=== PATIENT | female | born 2000 | race Two or more races ===

== ENCOUNTER 2019-12-19 21:42 | Inpatient (IN) | payer MEDICAID ==
[~2019-12-19 21:42] MED LIST: Lidocaine 1.5% with EPINEPHrine 1:200,000 5 ML Amp ONE
[2019-12-20] MEDS ORDERED: Sodium Chloride 0.9% 10 ML Syringe FLUSH PRN (00:48)
[2019-12-20] MEDS ORDERED: Ondansetron 4 MG/2 ML SDV IVPUSH PRN (00:48)
[2019-12-20] MEDS ORDERED: Nalbuphine 10 MG/ML Syringe IVPUSH PRN (00:48)
[2019-12-20] MEDS ORDERED: Oxytocin/Lactated Ringers 10 UNIT/1,000 ML BAG IV SCH (01:00)
[2019-12-20] MEDS: Lactated Ringers 1,000 ML IV SCH ×4 (01:05→05:21)
[2019-12-20] MEDS ORDERED: fentaNYL 100 MCG/2 ML SDV EPIDUR PRN (01:11)
[2019-12-20] MEDS ORDERED: diphenhydrAMINE 50 MG/ML SDV IVPUSH PRN (01:11)
[2019-12-20] MEDS ORDERED: Bupivacaine/fentaNYL/NS 100 ML Bag EPIDUR PRN (01:11)
[2019-12-20] MEDS ORDERED: ePHEDrine 50 MG/ML SDV IVPUSH PRN (01:11)
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
--- NOTE | 2019-12-20 07:53 | PCM.DEL ---
L & D Note - General Info Date of Service: 12/20/19 - Delivery Note Labor: Spontaneous Delivery Outcome: Livebirth Delivery Method: Spontaneous Vaginal Delivery-Single Delivery Mode: Spontaneous Presentation: Right Occiput Anterior (LYNDSAY) Nuchal Cord: None Anesthesia Type: Epidural Amniotic Fluid Description: Clear Episiotomy Type: None Laceration: None Placenta: Intact, Spontaneous Cord: 3 Vessels Estimated Blood Loss: 200 Resuscitation Needed: Yes [place]: Bulb Syringe, Stimulated, Warmed, [place] Used, Warmer Used Delivery Comments (Free Text/Narrative):: Assumed care for patient at 0645. Was about 9 cm at that time. Made quick change to complete dilation. Began pushing. With maternal pushing effort head delivered from LYNDSAY presentation. No nuchal cord. With gentle downward traction shoulders and body delivered. Infant placed on maternal abdomen. Cord clamped and cut. Cord blood obtained. Placenta allowed time to separate and expelled intact. Inspection of the perineum showed no lacerations - General Info Date of Service: 12/20/19 - Patient Data Vitals - Most Recent: Last Vital Signs Temp 37.2 C 12/19/19 22:01 Pulse 79 12/19/19 22:01 Resp 16 12/19/19 22:01 BP 121/77 12/19/19 22:01 Pulse Ox 94 L 12/19/19 22:01 Weight - Most Recent: 147.644 kg I&O - Last 24 Hours: Intake & Output 12/19/19 12/20/19 12/20/19 22:59 06:59 14:59 Intake Total 3000 Balance 3000 Lab Results Last 24 Hours: Laboratory Results - last 24 hr 12/19/19 12/19/19 12/20/19 Range/Units 22:25 22:25 01:10 WBC 12.23 H (3.98-10.04) K/mm3 RBC 4.40 (3.98-5.22) M/mm3 Hgb 11.5 (11.2-15.7) gm/dl Hct 36.4 (34.1-44.9) % MCV 82.7 (79.4-94.8) fl MCH 26.1 (25.6-32.2) pg MCHC 31.6 L (32.2-35.5) g/dl RDW Std Deviation 48.2 H (36.4-46.3) fL Plt Count 477 H (182-369) K/mm3 MPV 9.5 (9.4-12.3) fl Neut % (Auto) 69.3 (34.0-71.1) % Lymph % (Auto) 22.1 (19.3-51.7) % [place] % (Auto) 7.5 (4.7-12.5) % Eos % (Auto) 0.7 (0.7-5.8) Baso % (Auto) 0.1 (0.1-1.2) % Neut # (Auto) 8.47 H (1.56-6.13) K/mm3 Lymph # (Auto) 2.70 (1.18-3.74) K/mm3 [place] # (Auto) 0.92 H (0.24-0.36) K/mm3 Eos # (Auto) 0.09 (0.04-0.36) K/mm3 Baso # (Auto) 0.01 (0.01-0.08) K/mm3 Urine Color Yellow (Yellow) Urine Appearance Slt cloudy H (Clear) Urine pH 6.5 (5.0-8.0) Ur Specific [place] 1.025 (1.005-1.030) Urine Protein 1+ H (Negative) Urine Glucose (UA) Negative (Negative) Urine Ketones Negative (Negative) Urine Occult Blood Negative (Negative) Urine Nitrite Negative (Negative) Urine Bilirubin Negative (Negative) Urine Urobilinogen 0.2 (0.2-1.0) Ur Leukocyte Esterase Trace H (Negative) Urine RBC 0-5 (0-5) /hpf Urine WBC 0-5 (0-5) /hpf Ur Squamous Epith Cells 5-10 H (0-5) /hpf Amorphous Sediment Few H (NOT SEEN) /hpf Urine Bacteria Few (FEW) /hpf Urine Mucus Moderate H (FEW) /hpf Urine Opiates Screen Negative (SOWRCK=522) Ur Buprenorphine Scrn Negative (CUTOFF=10) Ur Oxycodone Screen Negative (OHE5VC=881) Urine Methadone Screen Negative (BPFADX=581) Ur Propoxyphene Screen Negative (RVOTNT=288) Ur Barbiturates Screen Negative (BSHFDW=123) Ur Tricyclics Screen Negative (JZKRNC=868) Ur Phencyclidine Scrn Negative (CUTOFF=25) Ur Amphetamine Screen Negative (QATTCL=806) U Methamphetamines Scrn Negative (XVUUFH=622) U Benzodiazepines Scrn Negative (BBFDBX=789) U Cocaine Metab Screen Negative (MVKFZN=996) U Marijuana (THC) Screen Negative (CUTOFF=50) Med Orders - Current: Current Medications Diphenhydramine HCl (Benadryl) 25 mg IVPUSH Q6H PRN PRN Reason: pruritis Ephedrine Sulfate (Ephedrine Sulfate) 5 mg IVPUSH ASDIRECTED PRN PRN Reason: Hypotension Fentanyl (Sublimaze) 100 mcg EPIDUR Q3H PRN PRN Reason: Pain Last Admin: 12/20/19 01:59 Dose: 100 mcg Fentanyl/Bupivacaine HCl (Fentanyl/Bupivacaine/Ns 2 Mcg-0.125% 100 Ml) 100 ml EPIDUR ASDIRECTED PRN PRN Reason: Pain Last Admin: 12/20/19 02:01 Dose: 100 ml Lactated Ringer's (Ringers, Lactated) 1,000 mls @ 100 mls/hr IV ASDIRECTED KATH Last Admin: 12/20/19 05:21 Dose: 100 mls/hr Oxytocin/Lactated Ringer's (Pitocin In Lr 10 Units/1,000 Ml) 10 unit in 1,000 mls @ 100 mls/hr IV .CONTINUOUS KATH Nalbuphine HCl (Nubain) 10 mg IVPUSH Q2H PRN PRN Reason: Pain Ondansetron HCl (Zofran) 4 mg IVPUSH Q4H PRN PRN Reason: Nausea/Vomiting Sodium Chloride (Saline Flush) 10 ml FLUSH ASDIRECTED PRN PRN Reason: Keep Vein Open - Problem List & Annotations (1) 39 weeks gestation of SNOMED Code(s): 16130606 Code(s): Z3A.39 - 39 WEEKS GESTATION OF Status: Acute Current Visit: Yes (2) Insufficient care SNOMED Code(s): 4808896567037 Code(s): O09.30 - SUPRVSN OF PREG W INSUFFICIENT ANTENAT CARE, UNSP TRIMESTER Status: Acute Current Visit: Yes (3) Normal labor SNOMED Code(s): 31492945 Code(s): O80 - ENCOUNTER FOR FULL-TERM UNCOMPLICATED DELIVERY; Z37.9 - OUTCOME OF DELIVERY, UNSPECIFIED Status: Acute Current Visit: Yes (4) Vaginal delivery SNOMED Code(s): 739161079 Code(s): O80 - ENCOUNTER FOR FULL-TERM UNCOMPLICATED DELIVERY Status: Acute Current Visit: Yes - Problem List Review Problem List Initiated/Reviewed/Updated: Yes - Assessment Assessment:: PPD#0 - Plan Plan:: * Routine cares * Discharge home in 1-2 days
[2019-12-20] MEDS ORDERED: Benzocaine/Menthol 20%-0.5% Spray 56 GM Canister TOP PRN (08:37)
[2019-12-20] MEDS ORDERED: Acetaminophen 325 MG Tab PO PRN (08:37)
[2019-12-20] MEDS ORDERED: Witch Hazel Medicated Pads 40/Jar TOP PRN (08:37)
[2019-12-20] MEDS: Sertraline 25 MG Tab PO SCH (08:44)
[2019-12-20] MEDS: Docusate Sodium 100 MG Cap PO PRN (08:45)
[2019-12-20] MEDS: Ibuprofen 600 MG Tab PO PRN (08:45)
[2019-12-20] MEDS ORDERED: Prenatal Multivitamin with Calcium/Folic Acid/Iron Tab PO SCH (09:00)
--- NOTE | 2019-12-20 09:42 | PCM48HPAN ---
Post Anesthesia Note - EVALUATION WITHIN 48HRS OF ANESTHETIC Vital Signs in Normal Range: Yes Patient Participated in Evaluation: Yes Respiratory Function Stable: Yes Airway Patent: Yes Cardiovascular Function Stable: Yes Hydration Status Stable: Yes Pain Control Satisfactory: Yes Nausea and Vomiting Control Satisfactory: Yes Mental Status Recovered: Yes Vital Signs: Last Vital Signs Temp 37.2 C 12/19/19 22:01 Pulse 79 12/19/19 22:01 Resp 16 12/19/19 22:01 BP 121/77 12/19/19 22:01 Pulse Ox 94 L 12/19/19 22:01
[2019-12-21] MEDS: Docusate Sodium 100 MG Cap PO PRN (04:26)
[2019-12-21] MEDS: Ibuprofen 600 MG Tab PO PRN (04:26)
--- NOTE | 2019-12-21 05:44 | PCM.DCSUM1 ---
Discharge Summary - Discharge Data Discharge Date: 12/21/19 Discharge Disposition: Home, Self-Care 01 Condition: Good - Referral to Home Health Primary Care Physician: Marilynn Salazar MD - Discharge Diagnosis/Problem(s) (1) 39 weeks gestation of SNOMED Code(s): 54761093 ICD Code: Z3A.39 - 39 WEEKS GESTATION OF Status: Acute Current Visit: Yes (2) Insufficient care SNOMED Code(s): 6169268013614 ICD Code: O09.30 - SUPRVSN OF PREG W INSUFFICIENT ANTENAT CARE, UNSP TRIMESTER Status: Acute Current Visit: Yes (3) Normal labor SNOMED Code(s): 56467350 ICD Code: O80 - ENCOUNTER FOR FULL-TERM UNCOMPLICATED DELIVERY; Z37.9 - OUTCOME OF DELIVERY, UNSPECIFIED Status: Acute Current Visit: Yes (4) Vaginal delivery SNOMED Code(s): 209841889 ICD Code: O80 - ENCOUNTER FOR FULL-TERM UNCOMPLICATED DELIVERY Status: Acute Current Visit: Yes - Patient Summary/Data Complications: None Consults: None Recommended Follow-up Testing/Procedures: Follow up in 3 week for check Hospital Course: 19 y/o at 39 3/7 wks presented in labor. Progressed well and underwent an uncomplicated . See delivery note. did well and was discharged home on PPD#1 - Patient Instructions Diet: Regular Diet as Tolerated Activity: As Tolerated Activity, Other: Pelvic rest for 6 weeks Driving: May Drive Today Showering/Bathing: May Shower Showering/Bathing, Other: May bathe Notify Provider of: Fever, Increased Pain, Swelling and Redness, Drainage, Nausea and/or Vomiting - Discharge Plan *PRESCRIPTION DRUG MONITORING PROGRAM REVIEWED*: No *COPY OF PRESCRIPTION DRUG MONITORING REPORT IN PATIENT BRICE: No Home Medications: Home Meds Albuterol Sulfate [Albuterol Sulfate Hfa] 12/20/19 [History] Vit #76/Iron,Carb/Fa [Pnv 29-1 Tablet] 1 tab PO DAILY 12/20/19 [History ] Sertraline [Zoloft] 25 mg PO DAILY 12/20/19 [History] Docusate Sodium [Colace] 100 mg PO BID PRN cap 12/21/19 [Rx] Ibuprofen [Motrin] 600 mg PO Q6H PRN tablet 12/21/19 [Rx] Referrals: Lexie Mccormack MD [Physician] - (3 weeks for check - can be telehealth appt ) - Discharge Summary/Plan Comment DC Time >30 min.: No - Patient Data Vitals - Most Recent: Last Vital Signs Temp 36.7 C 12/20/19 21:00 Pulse 80 12/20/19 21:04 Resp 14 12/20/19 21:04 BP 136/84 12/20/19 21:04 Pulse Ox 98 12/20/19 21:04 Weight - Most Recent: 147.644 kg I&O - Last 24 hours: Intake & Output 12/20/19 12/20/19 12/21/19 14:59 22:59 06:59 Intake Total 480 2300 Balance 480 2300 Lab Results - Last 24 hrs: Laboratory Results - last 24 hr 12/19/19 12/20/19 Range/Units 22:00 01:10 RPR Non-reactive (NONREACTIVE) Group B Strep (PCR) Negative (NEGATIVE) Med Orders - Current: Current Medications Acetaminophen (Tylenol) 650 mg PO Q4H PRN PRN Reason: mild pain or fever Benzocaine/Menthol (Dermoplast Pain Relief [place]) 0 gm TOP ASDIRECTED PRN PRN Reason: Perineal Comfort Measure Docusate Sodium (Colace) 100 mg PO BID PRN PRN Reason: Constipation Last Admin: 12/21/19 04:26 Dose: 100 mg Ibuprofen (Motrin) 600 mg PO Q6H PRN PRN Reason: Mild pain or fever Last Admin: 12/21/19 04:26 Dose: 600 mg Sertraline HCl (Zoloft) 25 mg PO DAILY KATH Last Admin: 12/20/19 08:44 Dose: 25 mg Witch Margret (Tucks) 1 pad TOP ASDIRECTED PRN PRN Reason: Perineal Comfort Measure Discontinued Medications Diphenhydramine HCl (Benadryl) 25 mg IVPUSH Q6H PRN PRN Reason: pruritis Ephedrine Sulfate (Ephedrine Sulfate) 5 mg IVPUSH ASDIRECTED PRN PRN Reason: Hypotension Fentanyl (Sublimaze) 100 mcg EPIDUR Q3H PRN PRN Reason: Pain Last Admin: 12/20/19 01:59 Dose: 100 mcg Fentanyl/Bupivacaine HCl (Fentanyl/Bupivacaine/Ns 2 Mcg-0.125% 100 Ml) 100 ml EPIDUR ASDIRECTED PRN PRN Reason: Pain Last Admin: 12/20/19 02:01 Dose: 100 ml Lactated Ringer's (Ringers, Lactated) 1,000 mls @ 100 mls/hr IV ASDIRECTED KATH Last Admin: 12/20/19 05:21 Dose: 100 mls/hr Oxytocin/Lactated Ringer's (Pitocin In Lr 10 Units/1,000 Ml) 10 unit in 1,000 mls @ 100 mls/hr IV .CONTINUOUS KATH Last Admin: 12/20/19 07:33 Dose: 999 mls/hr Lidocaine/Epinephrine (Xylocaine-Mpf 1.5% W/Epinephrine 1:200,000) 10 ml .ROUTE .[facility] ONE Stop: 12/19/19 00:01 Nalbuphine HCl (Nubain) 10 mg IVPUSH Q2H PRN PRN Reason: Pain Ondansetron HCl (Zofran) 4 mg IVPUSH Q4H PRN PRN Reason: Nausea/Vomiting Prenat Multivit/Food And Beverage Director/Iron/Folic Ac ( Plus Iron) 1 each PO DAILY KATH Sodium Chloride (Saline Flush) 10 ml FLUSH ASDIRECTED PRN PRN Reason: Keep Vein Open
--- NOTE | 2019-12-21 05:44 | PCM.PNPP ---
- General Info Date of Service: 12/21/19 Functional Status: Reports: Pain Controlled, Tolerating Diet, Ambulating, Urinating - Review of Systems General: Reports: No Symptoms Pulmonary: Reports: No Symptoms Cardiovascular: Reports: No Symptoms Gastrointestinal: Reports: No Symptoms Genitourinary: Reports: No Symptoms Musculoskeletal: Reports: No Symptoms - Patient Data Vital Signs - Most Recent: Last Vital Signs Temp 36.7 C 12/20/19 21:00 Pulse 80 12/20/19 21:04 Resp 14 12/20/19 21:04 BP 136/84 12/20/19 21:04 Pulse Ox 98 12/20/19 21:04 Weight - Most Recent: 147.644 kg I&O - Last 24 Hours: Intake & Output 12/20/19 12/20/19 12/21/19 14:59 22:59 06:59 Intake Total 480 2300 Balance 480 2300 Lab Results - Last 24 Hours: Laboratory Results - last 24 hr 12/19/19 12/20/19 Range/Units 22:00 01:10 RPR Non-reactive (NONREACTIVE) Group B Strep (PCR) Negative (NEGATIVE) Med Orders - Current: Current Medications Acetaminophen (Tylenol) 650 mg PO Q4H PRN PRN Reason: mild pain or fever Benzocaine/Menthol (Dermoplast Pain Relief [place]) 0 gm TOP ASDIRECTED PRN PRN Reason: Perineal Comfort Measure Docusate Sodium (Colace) 100 mg PO BID PRN PRN Reason: Constipation Last Admin: 12/21/19 04:26 Dose: 100 mg Ibuprofen (Motrin) 600 mg PO Q6H PRN PRN Reason: Mild pain or fever Last Admin: 12/21/19 04:26 Dose: 600 mg Sertraline HCl (Zoloft) 25 mg PO DAILY KATH Last Admin: 12/20/19 08:44 Dose: 25 mg Witch Mabel (Tucks) 1 pad TOP ASDIRECTED PRN PRN Reason: Perineal Comfort Measure Discontinued Medications Diphenhydramine HCl (Benadryl) 25 mg IVPUSH Q6H PRN PRN Reason: pruritis Ephedrine Sulfate (Ephedrine Sulfate) 5 mg IVPUSH ASDIRECTED PRN PRN Reason: Hypotension Fentanyl (Sublimaze) 100 mcg EPIDUR Q3H PRN PRN Reason: Pain Last Admin: 12/20/19 01:59 Dose: 100 mcg Fentanyl/Bupivacaine HCl (Fentanyl/Bupivacaine/Ns 2 Mcg-0.125% 100 Ml) 100 ml EPIDUR ASDIRECTED PRN PRN Reason: Pain Last Admin: 12/20/19 02:01 Dose: 100 ml Lactated Ringer's (Ringers, Lactated) 1,000 mls @ 100 mls/hr IV ASDIRECTED KATH Last Admin: 12/20/19 05:21 Dose: 100 mls/hr Oxytocin/Lactated Ringer's (Pitocin In Lr 10 Units/1,000 Ml) 10 unit in 1,000 mls @ 100 mls/hr IV .CONTINUOUS KATH Last Admin: 12/20/19 07:33 Dose: 999 mls/hr Lidocaine/Epinephrine (Xylocaine-Mpf 1.5% W/Epinephrine 1:200,000) 10 ml .ROUTE .Hole 19-MED ONE Stop: 12/19/19 00:01 Nalbuphine HCl (Nubain) 10 mg IVPUSH Q2H PRN PRN Reason: Pain Ondansetron HCl (Zofran) 4 mg IVPUSH Q4H PRN PRN Reason: Nausea/Vomiting Prenat Multivit/Clinical Psychologist/Iron/Folic Ac ( Plus Iron) 1 each PO DAILY KATH Sodium Chloride (Saline Flush) 10 ml FLUSH ASDIRECTED PRN PRN Reason: Keep Vein Open - Infant Interaction Infant Disposition, : [place] in Room with Family Interaction: Holding Infant Infant Feeding: Attempted ; Nursed Fair/Poor, Bottle Fed Infant Support Person: Significant Other - Recovery Exam Fundal Tone: Firm Fundal Level: At Umbilicus Fundal Placement: Midline Lochia Amount: Small Lochia Color: Rubra/Red Perineum Description: Intact, Minimal Bruising/Swelling Bladder Status: Voiding Urinary Elimination: Voided - Exam General: Alert, Oriented, Cooperative GI/Abdominal Exam: Soft, Non-Tender Extremities: Normal Inspection Skin: Warm, Dry, Intact - Problem List & Annotations (1) 39 weeks gestation of SNOMED Code(s): 98319585 Code(s): Z3A.39 - 39 WEEKS GESTATION OF Status: Acute Current Visit: Yes (2) Insufficient care SNOMED Code(s): 4862872690570 Code(s): O09.30 - SUPRVSN OF PREG W INSUFFICIENT ANTENAT CARE, UNSP TRIMESTER Status: Acute Current Visit: Yes (3) Normal labor SNOMED Code(s): 88322166 Code(s): O80 - ENCOUNTER FOR FULL-TERM UNCOMPLICATED DELIVERY; Z37.9 - OUTCOME OF DELIVERY, UNSPECIFIED Status: Acute Current Visit: Yes (4) Vaginal delivery SNOMED Code(s): 780311327 Code(s): O80 - ENCOUNTER FOR FULL-TERM UNCOMPLICATED DELIVERY Status: Acute Current Visit: Yes - Problem List Review Problem List Initiated/Reviewed/Updated: Yes - My Orders Last 24 Hours: My Active Orders 12/20/19 08:37 Activity as Tolerated [RC] PER UNIT ROUTINE Vital Signs [RC] 09,15,21,03 Acetaminophen [Tylenol] 650 mg PO Q4H PRN Benzocaine/Menthol [Dermoplast Pain Relief [place]] See Dose Instructions TOP ASDIRECTED PRN Docusate Sodium [Colace] 100 mg PO BID PRN Ibuprofen [Motrin] 600 mg PO Q6H PRN witch Mabel [Tucks] 1 pad TOP ASDIRECTED PRN Assess Lochia [WOMSER] Per Unit Routine Assess Uterine Involution [WOMSER] Per Unit Routine Breast Pump [WOMSER] Per Unit Routine Heat Therapy [OM.PC] PRN Ice Therapy [OM.PC] Per Unit Routine Medication Administration Instruction [OM.PC] Routine Perineal Care [OM.PC] Per Unit Routine Peripheral IV Discontinue [OM.PC] Routine Sitz Bath [OM.PC] Per Unit Routine 12/20/19 09:00 Sertraline [Zoloft] 25 mg PO DAILY 12/20/19 Breakfast Regular Diet [DIET] 12/21/19 05:44 Ready for Discharge [RC] PER UNIT ROUTINE 12/21/19 08:37 Heat Therapy [OM.PC] PRN - Assessment Assessment:: PPD#1 - Plan Plan:: * Routine cares * Breast and bottle feeding * Discharge home today
[2019-12-21] MEDS: Sertraline 25 MG Tab PO SCH (10:40)
== END 2019-12-21 11:20 | disposition home or self-care (01) | DRG 807 ==
LOC: JD.OBCHECK 21:42 → JD.OB 21:47 → JD.OBCHECK 12-20 00:49 → JD.OB 12-20 01:38 → OBSVTOIN 12-20 07:33 → JD.OB 12-20 07:34
PROVIDERS: ADMIT Obstetrics & Gynecology; ATTEND Obstetrics & Gynecology
PROC: 10E0XZZ Delivery of Products of Conception, External Approach (ICD-10-PCS; principal; 2019-12-20)
PROC: 3E0R3BZ Introduction of Anesthetic Agent into Spinal Canal, Percutaneous Approach (ICD-10-PCS; 2019-12-20)
DX: O99.214 Obesity complicating childbirth (principal); Z37.0 Single live birth; E66.01 Morbid (severe) obesity due to excess calories; O99.344 Other mental disorders complicating childbirth; F32.9 Major depressive disorder, single episode, unspecified; F41.9 Anxiety disorder, unspecified; Z3A.39 39 weeks gestation of pregnancy
CPT/HCPCS: 01967; 36415; 51702; 59025; 59409; 80306; 81001; 85025; 86592; 87653; A9270-GY; J2590; J3010; J7120